=== PATIENT | male | born 1930 | race African-American/Black ===

== ENCOUNTER 2017-09-17 22:37 | Emergency (ER) | payer MEDICARE ==
[~2017-09-17 22:37] MED LIST: Sodium Chloride 0.9% 1,000 ML BAG ONE; Sodium Chloride 0.9% 100 ML BAG ONE
--- NOTE | 2017-09-17 23:32 | CT ---
HEAD CT WITHOUT CONTRAST: 09/17/17 COMPARISON: None. HISTORY: Altered mental status. TECHNIQUE: Serial axial CT imaging at 5 mm intervals from vertex through skull base without contrast. FINDINGS: The imaged paranasal sinuses/mastoid air cells are well aerated. There is no displaced calvarial frac ture. No intracranial hemorrhage, midline shift, mass effect or ventricular enlargement. There is mild diff use cerebral volume loss with associated prominence of the CSF containing spaces. IMPRESSION: No acute findings. POS: [facility]
[2017-09-17 23:46] LABS: #Eosinphils 0.1 thou/uL (0.0-0.7); #Lymphocytes 1.1 thou/uL (1.20-3.40); #Monocytes 0.7 thou/uL (0.11-0.59); #Neutrophils 5.3 thou/uL (1.40-6.50); %Basophils 0.4 % (0.0-1.0); %Eosinophils 1.2 % (0.0-10.0); %Lymphocytes 15.7 % (21.0-51.0); %Monocytes 9.6 % (0.0-10.0); %Neutrophils 73.2 % (42.0-75.0); Hemoglobin 12.7 g/dL (14.0-18.0); Mean Corpuscular HGB CONC 32.8 g/dL (32.0-36.0); Mean Corpuscular Hemoglobin 29.6 pg (27.0-31.0); Mean Corpuscular Volume 90.4 fL (78.0-98.0); Mean Platelet Volume 8.3 fL (7.4-10.4); Platelet Count 123 thou/uL (130-400); RBC Distribution Width 12.3 % (11.5-14.5); Red Blood Cell (RBC) Count 4.27 mill/uL (4.70-6.10); White Blood Cell (WBC) Count 7.2 thou/uL (4.8-10.8)
--- NOTE | 2017-09-17 23:56 | RAD ---
FRONTAL AND LATERAL IMAGING CHEST: 09/17/17 COMPARISON: None. HISTORY: Altered mental status. FINDINGS: There is increased linear interstitial density with pulmonary hyperinflation, suggesting COPD in the proper clinical setting. No lobar consolidation or alveolar edema. No focal consolidation or pleural fluid. There is rotodextroscoliosis at the thoracolumbar junction, incompletely assessed. IMPRESSION: No radiographic evidence of acute cardiopulmonary disease. POS: [facility]
[2017-09-18 00:08] LABS: ALT (SGPT) 19 U/L (8-55); AST (SGOT) 24 U/L (5-34); Albumin 4.2 g/dL (3.4-4.8); Alkaline Phosphatase 67 U/L (40-150); Anion Gap 16 mmol/L (10-20); BUN (Urea Nitrogen) 16 mg/dL (8.4-25.7); Bilirubin, Total 2.2 mg/dL (0.2-1.2); Calc. Creatinine Clearance 0 mL/min (70-130); Calcium 9.4 mg/dL (7.8-10.44); Carbon Dioxide 22 mmol/L (23-31); Chloride 109 mmol/L (98-107); Estimated GFR-MDRD Greater than 90; Globulin 2.5 g/dL (2.4-3.5); Glucose 114 mg/dL (83-110); Magnesium 2.2 mg/dL (1.6-2.6); Protein, Total 6.7 g/dL (5.8-8.1); Sodium 143 mmol/L (136-145)
[2017-09-18 00:09] LABS: Troponin I 0.016 ng/mL (< 0.028)
[2017-09-18 00:20] LABS: Bilirubin Negative (Negative); Blood, Urine Trace (Negative); Glucose, Urine (Dipstick) Negative (Negative); Leukocyte Large (Negative); Nitrite Negative (Negative); Protein, Urine (Dipstick) 30 mg/dL (Neg-Trace); Urobilinogen 0.2 mg/dL (0.2-1.0)
[2017-09-18 00:21] LABS: Clarity Cloudy (Clear)
[2017-09-18 00:24] LABS: Bacteria/HPF 1+ HPF (None Seen); Squamous Epithelial 0-3 HPF (0-3)
[2017-09-18] MEDS ORDERED: cefTRIAXone\\ROCEPHIN 1 GM VIAL ONE (00:49)
== END 2017-09-18 03:00 | disposition home or self-care (01) ==
LOC: MADERS 22:37
DX: N39.0 Urinary tract infection, site not specified (principal); I10 Essential (primary) hypertension; F03.90 Unspecified dementia, unspecified severity, without behavioral disturbance, psychotic disturbance, mood disturbance, and anxiety
CPT/HCPCS: 70450; 71046; 80053; 81003; 81015; 82553; 83735; 84443; 84484; 85025; 85610; 85730; 93005; 96361; 96365; J0696; J7050